=== PATIENT | female | born 1990 ===

== ENCOUNTER 2024-02-16 21:23 | Emergency (ER) | payer MEDICAID ==
[~2024-02-16] VITALS: Ht 162.6 cm; Wt 114.2 kg
[2024-02-16 21:33] VITALS: BP 110/75; PULSE 95; RESP 20; TEMP 98; O2SAT 99
== END 2024-02-16 23:00 | disposition left against medical advice (07) ==
LOC: ER 21:23
DX: R10.84 Generalized abdominal pain (principal); R42 Dizziness and giddiness; Z53.21 Procedure and treatment not carried out due to patient leaving prior to being seen by health care provider